=== PATIENT | male | born 1980 | race Caucasian/White ===

== ENCOUNTER 2022-08-28 07:20 | Emergency (ER) | payer BC, MEDICARE ==
[~2022-08-28] VITALS: Ht 193 cm; Wt 116.1 kg
[~2022-08-28 07:20] MED LIST: OXYC30TA86 PO
[2022-08-28] MEDS ORDERED: OXYCODONE HCL 5 MG TABLET PO ONE (07:45)
[2022-08-28] MEDS ORDERED: OXYCODONE HCL 5 MG TABLET ONE (07:51)
--- NOTE | 2022-08-28 08:04 | NUR ---
PT WAS EVALUATED BY DR CUEVA. PT WAS D/C'd TO HOME. D/C INSTRUCTIONS GIVEN TO THE PT BY DR CUEVA.
[2022-08-28 08:12] VITALS: BP 139/75
== END 2022-08-28 08:20 | disposition home or self-care (01) ==
LOC: ER 07:20
DX: G89.29 Other chronic pain (principal); M48.00 Spinal stenosis, site unspecified; M51.9 Unspecified thoracic, thoracolumbar and lumbosacral intervertebral disc disorder; R29.6 Repeated falls; H54.8 Legal blindness, as defined in USA; Z88.6 Allergy status to analgesic agent; F17.200 Nicotine dependence, unspecified, uncomplicated
CPT/HCPCS: A4663

== ENCOUNTER 2023-09-03 23:29 | Emergency (ER) | payer MEDICARE ==
[~2023-09-03] VITALS: Ht 193 cm; Wt 117.9 kg
[2023-09-04] MEDS ORDERED: diphenhydrAMINE 50 MG/1 ML VIAL ONE (00:44)
[2023-09-04] MEDS ORDERED: MORPHINE SULFATE 2 MG/1 ML DISP.SYRIN ONE (00:44)
[2023-09-04] MEDS ORDERED: MORPHINE SULFATE 4 MG/1 ML DISP.SYRIN ONE (00:44)
[2023-09-04] MEDS ORDERED: diphenhydrAMINE 50 MG/1 ML VIAL IM ONE (00:45)
[2023-09-04] MEDS ORDERED: MORPHINE SULFATE 4 MG/1 ML DISP.SYRIN IM ONE (00:45)
[2023-09-04 01:17] VITALS: BP 145/88; TEMP 98.2; O2SAT 99
== END 2023-09-04 01:19 | disposition home or self-care (01) ==
LOC: ER 23:44
DX: G89.4 Chronic pain syndrome (principal); M54.9 Dorsalgia, unspecified; F11.20 Opioid dependence, uncomplicated; I10 Essential (primary) hypertension; F17.200 Nicotine dependence, unspecified, uncomplicated; Z79.899 Other long term (current) drug therapy; Z88.5 Allergy status to narcotic agent
CPT/HCPCS: 99284; 96372 ×2; J1200; J2270 ×2; A4606; A4663

== ENCOUNTER 2023-09-04 05:44 | Emergency (ER) | payer MEDICARE ==
[~2023-09-04] VITALS: Ht 193 cm; Wt 117.9 kg
[2023-09-04 06:50] VITALS: O2SAT 97
[2023-09-04] MEDS ORDERED: MORPHINE SULFATE 4 MG/1 ML DISP.SYRIN IM ONE (07:00)
[2023-09-04] MEDS ORDERED: MORPHINE SULFATE 4 MG/1 ML DISP.SYRIN ONE (07:04)
[2023-09-04] MEDS ORDERED: MORPHINE SULFATE 2 MG/1 ML DISP.SYRIN ONE (07:04)
[2023-09-04] MEDS ORDERED: OXYCODONE/APAP 5-325 MG TABLET ONE (07:42)
[2023-09-04] MEDS ORDERED: OXYCODONE/APAP 5-325 MG TABLET PO ONE (07:45)
== END 2023-09-04 07:47 | disposition home or self-care (01) ==
LOC: ER 05:46
DX: G89.4 Chronic pain syndrome (principal); M54.9 Dorsalgia, unspecified; I10 Essential (primary) hypertension; F17.200 Nicotine dependence, unspecified, uncomplicated; Z98.890 Other specified postprocedural states; Z88.5 Allergy status to narcotic agent
CPT/HCPCS: 99283; 96372; J2270 ×2; A4606; A4663

== ENCOUNTER 2024-02-10 17:08 | Emergency (ER) | payer MEDICARE ==
[~2024-02-10] VITALS: Ht 193 cm; Wt 115.7 kg
[2024-02-10 17:17] VITALS: O2SAT 98
[2024-02-10] MEDS: OXYCODONE HCL 5 MG TABLET PO ONE (17:37)
[2024-02-10] MEDS ORDERED: OXYCODONE HCL 5 MG TABLET ONE (17:37)
[2024-02-10] MEDS ORDERED: OXYC30TA2 PO (17:37)
== END 2024-02-10 17:43 | disposition home or self-care (01) ==
LOC: ER 17:11
DX: G89.4 Chronic pain syndrome (principal); F17.200 Nicotine dependence, unspecified, uncomplicated; Z98.890 Other specified postprocedural states; Z79.899 Other long term (current) drug therapy; Z60.2 Problems related to living alone; Z88.5 Allergy status to narcotic agent
CPT/HCPCS: A4606; A4663